=== PATIENT | female | born 1955 | race Caucasian/White ===

== ENCOUNTER → 2018-05-20 | Outpatient (CLI) | payer BC ==
[~2018-05-20] MED LIST: AMBIEN 10MG10 MG PO; AMITRIPTYLINE PO; ASPIRIN 32325 MG/TAB PO; ASPIRIN E.C. 8181 MG PO; ATROVENTNS0.03% NS; CHLORDIAZEPOXIDE PO; CLARITIN 1010 MG/TAB PO; DULERA1 AR1 IH; ETODOLAC200 MG PO; EYE DROPS ALLER15 ML OP; FIBER0.52 GM PO; FLEXERIL 1010 MG/TAB PO; FLONASE NASAL S16 GM NS; GLUCOSAMINE CHO1 TAB PO; HORIZANT600 MG PO; LIDODERM 5% PATC1 EA TP; MAGNESIUM200 MG PO; MASON NATURAL1200 MG PO; NEB; NEURONTIN300 MG/CAP PO; NORCO 325 MG-51 TAB PO; NORCO 325 MG-7.1 TAB PO; OXECTA7.5 MG PO; PRILOSEC 20MG20 MG PO; PROBIOTIC-MAJOR PO; SPRIX15.75 MG/A NS; VALIUM 5MG T5 MG/TAB PO; VITAMIN D1000 IU PO; VOLTAREN GEL 1%1 TU TP
== END ==
LOC: MC.RAD 04-15 14:45
DX: Z12.31 Encounter for screening mammogram for malignant neoplasm of breast (principal)

== ENCOUNTER → 2018-10-05 | Outpatient (CLI) | payer MEDICARE, BC | LOC: COL.RAD 10:59 | DX: H81.11 Benign paroxysmal vertigo, right ear (principal) | CPT/HCPCS: Q9967 ==

== ENCOUNTER 2020-07-30 08:07 | Day surgery (SDC) | payer MEDICARE, BC ==
[~2020-07-30] VITALS: Ht 152.4 cm; Wt 72.7 kg
[2020-07-30 09:10] VITALS: BP 137/55; PULSE 72; TEMP 97.8
[2020-07-30] MEDS ORDERED: DESYREL 50MG50 MG PO (09:47)
[2020-07-30] MEDS ORDERED: OXY IR5 MG PO (09:48)
[2020-07-30] MEDS ORDERED: 00186-0370-20 IH (09:48)
[2020-07-30] MEDS ORDERED: METROCREAM CREA45 GM TP (09:49)
[2020-07-30] MEDS ORDERED: ALBUTEROL0.83 MG/ML IH (09:50)
[2020-07-30] MEDS ORDERED: CBD OIL TOP (09:54)
[2020-07-30] MEDS ORDERED: VITAMIN B12 1541 TAB PO (09:55)
[2020-07-30] MEDS ORDERED: VITAMIN D (10:01)
[2020-07-30] MEDS ORDERED: VITAMIN D3 PO (10:01)
[2020-07-30] MEDS ORDERED: CRESTOR20 MG PO (10:02)
[2020-07-30] MEDS ORDERED: LEADER EYE ITCH5 ML OP (10:03)
[2020-07-30] MEDS ORDERED: PEPCID 20MG TAB20 MG PO (10:06)
[2020-07-30 10:20] VITALS: BP 111/66; PULSE 78
--- NOTE | 2020-07-30 10:20 | NUR ---
PATIENT TO RECOVERY BAY 3 POST PROCEDURE ACCOMPANIED BY RN Natalya RICHEY. PATIENT REMAINS ON CART. VITAL SIGNS DONE, WNL. REPORT RECEIVED. PATIENT GIVEN WATER TO DRINK. ALERT AND AWAKE. NO COMPLAINTS OF PAIN OR NAUSEA.
[2020-07-30 10:35] VITALS: BP 116/66; PULSE 72
[2020-07-30 10:50] VITALS: BP 129/69; PULSE 76
--- NOTE | 2020-07-30 11:05 | NUR ---
IV SITE TO RIGHT HAND DISCONTINUED. NO REDNESS OR SWELLING. PRESSURE APPLIED AND SECURED WITH COTTON AND COBAN
--- NOTE | 2020-07-30 11:13 | NUR ---
PATIENT GIVEN DISMISSAL INSTRUCTIONS FOR REVIEW. REVIEWED VERBALLY WITH PATIENT. PATIENT DENIES QUESTIONS. GIVES VERBAL UNDERSTANDING.
--- NOTE | 2020-07-30 11:27 | NUR ---
PATIENT SIGNS EDUCATION AND DISMISSAL INSTRUCTIONS FOR UNDERSTANDING. PATIENT DISMISSED TO HOME IN STABLE CONDITION. ESCORTED OFF UNIT VIA WHEELCHAIR BY STAFF. PATIENT HAS WAITING WHAT JOB TITLES MEAN AVAILABLE.
[2020-07-30 16:36] VITALS: BP 105/62; PULSE 81
== END 2020-07-30 11:30 | disposition home or self-care (01) ==
LOC: SDCO 08:07
DX: Z12.11 Encounter for screening for malignant neoplasm of colon (principal); K57.30 Diverticulosis of large intestine without perforation or abscess without bleeding; K64.0 First degree hemorrhoids; K25.7 Chronic gastric ulcer without hemorrhage or perforation; K29.30 Chronic superficial gastritis without bleeding; M19.90 Unspecified osteoarthritis, unspecified site; G43.909 Migraine, unspecified, not intractable, without status migrainosus; E78.5 Hyperlipidemia, unspecified; G47.33 Obstructive sleep apnea (adult) (pediatric); G89.29 Other chronic pain; K21.9 Gastro-esophageal reflux disease without esophagitis
CPT/HCPCS: J2704; J7030